=== PATIENT | male | born 1990 | race Hispanic/Latino ===

== ENCOUNTER 2017-11-29 20:30 | Emergency (ER) | payer OTHER | END 2017-11-29 23:20 | disposition home or self-care (01) | LOC: M ED 20:30 | DX: S06.0X0A Concussion without loss of consciousness, initial encounter (principal); X58.XXXA Exposure to other specified factors, initial encounter; Y92.89 Other specified places as the place of occurrence of the external cause | CPT/HCPCS: 99282 ==

== ENCOUNTER 2018-07-21 19:42 | Emergency (ER) | payer OTHER | END 2018-07-21 22:02 | disposition left against medical advice (07) | LOC: M ED 19:42 | DX: Z53.29 Procedure and treatment not carried out because of patient's decision for other reasons (principal) ==

== ENCOUNTER 2019-03-12 17:10 | Emergency (ER) | payer OTHER, SELFPAY ==
[~2019-03-12] VITALS: Ht 177.8 cm; Wt 77.3 kg
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
[2019-03-12 21:01] VITALS: BP 132/83
== END 2019-03-12 21:21 | disposition home or self-care (01) ==
LOC: M ED 17:10
DX: G44.309 Post-traumatic headache, unspecified, not intractable (principal); R03.0 Elevated blood-pressure reading, without diagnosis of hypertension; Z82.49 Family history of ischemic heart disease and other diseases of the circulatory system

== ENCOUNTER 2020-11-24 01:00 | Emergency (ER) | payer OTHER, SELFPAY ==
[~2020-11-24] VITALS: Ht 180.3 cm; Wt 82.3 kg
[2020-11-24] MEDS ORDERED: ALBUTEROL 90 MCG/ACT 8GM HFA INHALER INH ONE (02:20)
[2020-11-24] MEDS ORDERED: predniSONE 20 MG TAB PO ONE (02:20)
[2020-11-24 02:55] LABS: BASO # 0.1 10^3/uL (0.0-0.2); EOS # 0.2 10^3/uL (0.0-0.5); EOS % 4.2 % (0.0-3.0); HEMATOCRIT 40.6 % (42.0-52.0); HEMOGLOBIN 13.7 g/dl (13.5-17.5); LYMPH # 1.8 10^3/uL (1.5-5.0); LYMPH % 35.8 % (24.0-44.0); MEAN CORPUSCULAR HEMOGLOBIN 29.5 pg (27.0-33.0); MEAN CORPUSCULAR HGB CONC 33.7 g/dl (32.0-36.5); MEAN CORPUSCULAR VOLUME 87.5 fl (80.0-96.0); MONO # 0.5 10^3/uL (0.0-0.8); MONO % 9.5 % (2.0-8.0); NEUTROPHILS # 2.4 10^3/uL (1.5-8.5); NEUTROPHILS % 49.1 % (36.0-66.0); PLATELET COUNT, AUTOMATED 289 10^3/uL (150-450); RED BLOOD COUNT 4.64 10^6/uL (4.30-6.10)
--- NOTE | 2020-11-24 03:09 | REPVR ---
PROCEDURE INFORMATION: Exam: XR Chest Exam date and time: 11/24/2020 2:19 AM Age: 30 years old Clinical indication: Other: Dyspnea; Additional info: Dyspnea/cough TECHNIQUE: Imaging protocol: XR of the chest. Views: 2 views. COMPARISON: No relevant prior studies available. FINDINGS: Lungs: Unremarkable. No consolidation. Pleural spaces: Unremarkable. No pleural effusion. No pneumothorax. Heart/Mediastinum: Unremarkable. No cardiomegaly. Bones/joints: Unremarkable. IMPRESSION: No acute findings. Electronically signed by: Cristian Bailey On 11/24/2020 03:08:31 AM
[2020-11-24 03:16] LABS: BLOOD UREA NITROGEN 17 MG/DL (7-18); CALCIUM LEVEL 8.8 MG/DL (8.5-10.1); CARBON DIOXIDE LEVEL 28 MEQ/L (21-32); CHLORIDE LEVEL 107 MEQ/L (98-107); CREATININE FOR GFR 0.84 MG/DL (0.70-1.30); GLOMERULAR FILTRATION RATE > 60.0 (>60); GLUCOSE, FASTING 97 MG/DL (70-100); POTASSIUM SERUM 3.6 MEQ/L (3.5-5.1); SODIUM LEVEL 140 MEQ/L (136-145)
[2020-11-24] MEDS ORDERED: PRED20TA PO (04:30)
[2020-11-24 04:35] VITALS: BP 143/88
== END 2020-11-24 04:40 | disposition home or self-care (01) ==
LOC: M ED 01:00
DX: R06.02 Shortness of breath (principal)